=== PATIENT | male | born 1990 | race Caucasian/White ===

== ENCOUNTER → 2016-05-05 | Outpatient (CLI) | payer BC ==
[2016-05-05 18:48] VITALS: BP 119/69
== END ==
LOC: MHUC 17:59
PROVIDERS: ATTEND Physician Assistant
DX: J01.10 Acute frontal sinusitis, unspecified (principal)
CPT/HCPCS: 99213

== ENCOUNTER → 2016-05-25 | Outpatient (CLI) | payer BC ==
[2016-05-25 12:00] VITALS: BP 124/77
== END ==
LOC: MHUC 11:22
PROVIDERS: ATTEND Physician Assistant
DX: B35.3 Tinea pedis (principal)
CPT/HCPCS: 99212